=== PATIENT | female | born 1990 | race Caucasian/White ===

== ENCOUNTER 2018-05-18 09:00 | Emergency (ER) | payer OTHER, MEDICAID ==
[2018-05-18] MEDS ORDERED: IBUPROFEN 600 MG TAB PO ONE (09:16)
--- NOTE | 2018-05-18 09:16 | EDPHY ---
H & P Stated Complaint: bilat LQ pn x12D, menses ended yest, "bumps" on flanks Time Seen by Provider: 05/18/18 09:06 HPI/ROS: CHIEF COMPLAINT: Lower abdominal cramping HISTORY OF PRESENT ILLNESS: 27-year-old female presents with lower abdominal cramping. LMP started 12 days ago, ongoing mild to moderate lower abdominal cramping since then. Associated with occasional dysuria, no other urinary symptoms. Seen by her primary care physician several days ago, told that she had ovarian inflammation on pelvic exam, but no infection. No alleviating or aggravating factors. No vaginal discharge, diarrhea or constipation. REVIEW OF SYSTEMS: complete 10 point ROS reviewed and is negative except for the noted elements in the HPI - Personal History Current Tetanus/Diphtheria Vaccine: Unsure - Medical/Surgical History Hx Asthma: No Hx Chronic Respiratory Disease: No Hx Diabetes: No Hx Cardiac Disease: Yes Hx Renal Disease: No Hx Cirrhosis: No Hx Alcoholism: No Hx HIV/AIDS: No Hx Splenectomy or Spleen Trauma: No Other PMH: Kehinde's syndrome - Social History Smoking Status: Never smoked Alcohol Use: Sober Drug Use: None - Physical Exam Exam: General Appearance: Alert, pleasant Eyes: Pupils equal and round, no conjunctival pallor ENT, Mouth: Mucous membranes moist Neck: Normal inspection Respiratory: Lungs are clear to auscultation Cardiovascular: Regular rate and rhythm Gastrointestinal: Abdomen is soft and nontender Neurological: A&O, nonfocal, normal gait Skin: Warm and dry, no rash Extremities: Nontender, no pedal edema Psychiatric: Mood and affect normal Constitutional: Initial Vital Signs Temperature (C) 36.3 C 05/18/18 09:09 Heart Rate 95 05/18/18 09:09 Respiratory Rate 18 05/18/18 09:09 Blood Pressure 162/107 H 05/18/18 09:09 O2 Sat (%) 99 05/18/18 09:09 O2 Delivery Mode Room Air Allergies/Adverse Reactions: morphine [Morphine] Allergy (Verified 05/18/18 09:08) Home Medications: Medication Instructions Recorded Pen Vk 11/07/09 Ciprofloxacin [Cipro 250 mg] 250 mg PO BID #6 tab 02/18/10 Medical Decision Making - Diagnostics Imaging Results: Imaging Impressions Pelvic/Renal Ultrasound 05/18/18 09:57 Impression: Normal ultrasound pelvis. Results called and discussed with Dr. Angelia Christine at 05/18/2018 10:46. Imaging: Discussed imaging studies w/ pattern chart writer Radiologist ED Course/Re-evaluation: This patient presents with lower abdominal cramping and a normal abdominal exam. Pelvic ultrasound is unremarkable. Ibuprofen 600 mg orally given for cramping. Laboratory tests are also unremarkable. I feel that she is safe and stable for discharge home. Warning signs discussed. Differential Diagnosis: Differential diagnosis includes though it is not limited to ectopic , ovarian cyst, ovarian torsion, PID, UTI, appendicitis. - Data Points Laboratory Results: Laboratory Results 05/18/18 09:15 05/18/18 05/18/18 05/18/18 09:15 09:15 09:15 WBC 5.29 10^3/uL 10^3/uL (3.80-9.50) RBC 5.35 10^6/uL H 10^6/uL (4.18-5.33) Hgb 17.3 g/dL H g/dL (12.6-16.3) Hct 48.9 % H % (38.0-47.0) MCV 91.4 fL fL (81.5-99.8) MCH 32.3 pg pg (27.9-34.1) MCHC 35.4 g/dL g/dL (32.4-36.7) RDW 13.3 % % (11.5-15.2) Plt Count 412 10^3/uL H 10^3/uL (150-400) MPV 8.2 fL L fL (8.7-11.7) Neut % (Auto) 25.4 % L % (39.3-74.2) Lymph % (Auto) 48.6 % H % (15.0-45.0) [place] % (Auto) 19.7 % H % (4.5-13.0) Eos % (Auto) 2.3 % % (0.6-7.6) Baso % (Auto) 3.4 % H % (0.3-1.7) Nucleat RBC Rel Count 0.0 % % (0.0-0.2) Absolute Neuts (auto) 1.35 10^3/uL L 10^3/uL (1.70-6.50) Absolute Lymphs (auto) 2.57 10^3/uL 10^3/uL (1.00-3.00) Absolute Monos (auto) 1.04 10^3/uL H 10^3/uL (0.30-0.80) Absolute Eos (auto) 0.12 10^3/uL 10^3/uL (0.03-0.40) Absolute Basos (auto) 0.18 10^3/uL H 10^3/uL (0.02-0.10) Absolute Nucleated RBC 0.00 10^3/uL 10^3/uL (0-0.01) Immature Gran % 0.6 % % (0.0-1.1) Immature Gran # 0.03 10^3/uL 10^3/uL (0.00-0.10) Beta HCG, Qual NEGATIVE Urine Color COLORLESS Urine Appearance CLEAR Urine pH 6.0 (5.0-7.5) Ur Specific [place] 1.001 L (1.002-1.030) Urine Protein NEGATIVE (NEGATIVE) Urine Ketones NEGATIVE (NEGATIVE) Urine Blood NEGATIVE (NEGATIVE) Urine Nitrate NEGATIVE (NEGATIVE) Urine Bilirubin NEGATIVE (NEGATIVE) Urine Urobilinogen NEGATIVE EU EU (0.2-1.0) Ur Leukocyte Esterase NEGATIVE (NEGATIVE) Urine Glucose NEGATIVE (NEGATIVE) Medications Given: Discontinued Medications Ibuprofen (Motrin) 600 mg PO EDNOW ONE Stop: 05/18/18 09:17 Last Admin: 05/18/18 09:23 Dose: 600 mg Departure - Departure Disposition: Home, Routine, Self-Care Clinical Impression: Pelvic cramping Condition: Good Instructions: Pelvic Pain in Women (ED) Additional Instructions: Ibuprofen 600 mg 3 times daily while the pain persists. Referrals: Mi Gonzalez MD [[facility] [place] Primary Care Provider] - As per Instructions
[2018-05-18 09:41] LABS: PLATELET COUNT 412 10^3/uL (150-400)
[2018-05-18 11:01] VITALS: BP 141/81
== END 2018-05-18 11:01 | disposition home or self-care (01) ==
LOC: EDUNIT#
DX: R10.2 Pelvic and perineal pain (principal); Q93.82 Williams syndrome